=== PATIENT | female | born 1995 | race Caucasian/White ===

== ENCOUNTER 2017-05-01 21:53 | Emergency (ER) | payer SELFPAY ==
[~2017-05-01] VITALS: Ht 162.6 cm; Wt 62.1 kg
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
[2017-05-01 23:15] VITALS: BP 129/88
== END 2017-05-01 23:16 | disposition home or self-care (01) ==
LOC: ER 21:55
DX: S09.90XA Unspecified injury of head, initial encounter (principal); J45.909 Unspecified asthma, uncomplicated; V43.62XA Car passenger injured in collision with other type car in traffic accident, initial encounter; Y93.89 Activity, other specified; Y92.89 Other specified places as the place of occurrence of the external cause; Y99.9 Unspecified external cause status
CPT/HCPCS: 99283; A4606; Z7610